=== PATIENT | female | born 1985 | race Caucasian/White ===

== ENCOUNTER 2017-03-12 18:00 | Inpatient (IN) | payer OTHER ==
--- NOTE | ~2017-03-12 | HP ---
Unit #: [id number] #: [id number] Patient: LM FONTAINE [id number] [place] [address] [id number] I MR#: [id number] NAME: LM FONTAINE ROOM: 12 Age: 31 Sex: F Admission Date: 03/12/2017 : 1985 Attending Physician: Aguila Aldnaa M.D. Admitting Physician: Aguila Aldana M.D. HISTORY AND PHYSICAL HISTORY OF PRESENT ILLNESS Trish is a 31 year old admitted to [address] [place] [address] with psychotic behavior. He is a poor historian so her history is taken from her chart. PAST MEDICAL HISTORY 1. Morbid obesity 2. Osteoarthritis 3. History of migraine headaches 4. Obstructive sleep apnea PAST SURGICAL HISTORY Tubal ligation ALLERGIES Latex (rash) SOCIAL HISTORY Smokes at least a pack and a half a day. Denies alcohol. Admits to using marijuana frequently. FAMILY HISTORY Medically noncontributory. REVIEW OF SYSTEMS She does not answer questions appropriately. There are no reports of nausea, vomiting or diarrhea. She has had no complaints of indications of chest pain. CURRENT MEDICATIONS 1. Trilafon 4 mg b.i.d. 2. Trileptal 600 mg b.i.d. 3. Milk of Magnesia p.r.n. 4. Maalox p.r.n. 5. Tylenol p.r.n. 6. Remeron 30 mg q.h.s. 7. BuSpar 15 mg t.i.d. 8. Nicotine patch 14 mg q day PHYSICAL EXAMINATION GENERAL: Alert, well-nourished, in no apparent distress. VITAL SIGNS: Blood pressure 128/64, heart rate 80, respirations 16, temperature 98.6. Unit #: [id number] #: [id number] Patient: LM FONTAINE WEIGHT: 242 pounds. HEIGHT: 5'4". SKIN: Warm and dry without rash or lesion. HEENT: Normocephalic. TMs not viewed. Oral and nasal passages clear. Conjunctivae clear. Pupils equal, round and reactive to light and accommodation. Extraocular movements intact. NECK: Supple without lymphadenopathy or thyromegaly. HEART: Regular rate and rhythm without murmur. LUNGS: Clear. ABDOMEN: Soft, nontender. : Not done. EXTREMITIES: No evidence of cyanosis, clubbing or edema. Moves all extremities without focal deficit. NEUROLOGICAL: Unable to completed extended exam. She does move all extremities without focal deficit. Hand soup person is equal and gait is normal. IMPRESSION Psychiatric admission RECOMMENDATIONS PSYCHIATRIC: Per psychiatrist. MEDICAL: I see no contraindications to participating in facility's activities. MEDICAL PROGNOSIS Good. MEDICAL CONDITION Stable. Dictated by... Mervat Nagy P.A.-C. for Elli Pelletier/prudence TD: 03/14/2017 03:34 JOB #: [id number] HISTORY AND PHYSICAL Page 1 of 1 X Mervat Nagy X HISTORY AND PHYSICAL
--- NOTE | ~2017-03-12 | PN ---
Unit #: [id number] #: [id number] Patient: LM FONTAINE [id number] [facility] [address] [place] [address] [id number] Scott MR#: [id number] NAME: LM FONTAINE ROOM: 12 Age: 31 Sex: F Admission Date: 03/12/2017 : 1985 Attending Physician: Aguila Aldana M.D. Admitting Physician: Elli Billings PROGRESS NOTES DATE 03/14/2017 DISCUSSION The patient remains irritable and continues to complain of poor sleep. She request an increase in her Remeron dose. I will increase her dose to 45 mg, but I have some concerns about the possibility that this medication could potentially worsen the patient's symptoms of missael and may consider its discontinuation and instead begin a trial of Neurontin for sleep. Dictated by... Aguila Aldana M.D. CB/bzg TD: 03/14/2017 14:18 JOB #: [id number] [facility] PROGRESS NOTES Page 1 of 1 X Aguila Aldana MD X PROGRESS NOTE
--- NOTE | ~2017-03-12 | DS ---
Unit #: [id number] #: [id number] Patient: LM FONTAINE [id number] [place] [address] [id number] I MR#: [id number] NAME: LM FONTAINE ROOM: 12 Age: 31 Sex: F Admission Date: 03/12/2017 : 1985 Discharge Date: Attending Physician: Aguila Aldana M.D. DISCHARGE SUMMARY DATE OF DISCHARGE 03/16/2017. REASON FOR ADMISSION The patient is a 31-year-old white female, admitted in a manic phase of bipolar disorder. HOSPITAL COURSE The patient was admitted to the [address] [place] [address] and placed on suicide precautions. She was continued on previously prescribed BuSpar and Trileptal, and was started on Trileptal and Trilafon. She tolerated these medications well, but continued to complain of poor sleep. By 03/15/2017, the patient requesting discharge from the hospital claiming that she was "not getting the help she needed here." She at that time, however, denied any psychotic symptoms and arrangements were made for transport to take the patient back to [place], [place] the following day. FINAL DIAGNOSES Bipolar disorder, most recent episode, manic; borderline personality by history; morbid obesity; obstructive sleep apnea. DISPOSITION ON DISCHARGE The patient is discharged on the following medications: BuSpar 15 mg t.i.d. for anxiety, Trileptal 600 mg b.i.d. for mood stabilization, Trilafon 4 mg b.i.d. for mood stabilization, and Remeron 45 mg at h.s. for depression. DISCHARGE INSTRUCTIONS No dietary or physical restrictions were placed upon the patient at the time of discharge. PROGNOSIS Her prognosis is considered fair. FOLLOWUP Followup will take place through the auspices of community mental health resources in the [place], [place] area. Dictated by... Aguila Aldana M.D. CB/xi Unit #: [id number] #: [id number] Patient: LM FONTAINE TD: 03/15/2017 14:11 JOB #: [id number] DISCHARGE SUMMARY Page 1 of 1 X Aguila Aldana MD DISCHARGE SUMMARY
--- NOTE | ~2017-03-12 | PA ---
Unit #: [id number] #: [id number] Patient: LM FONTAINE [id number] [place] [address] [id number] I MR#: [id number] NAME: LM FONTAINE ROOM: P112 Age: 31 Sex: F Admission Date: 03/12/2017 : 1985 Date of Assessment: 03/13/2017 Attending Physician: Aguila Aldana M.D. Admitting Physician: Aguila Aldana M.D. PSYCHIATRIC ASSESSMENT IDENTIFYING INFORMATION The patient is a 31-year-old white female from [facility] admitted after she had presented to this facility wishing to reinitiate treatment for her bipolar spectrum disorder. CHIEF COMPLAINT I can't find a psychiatrist in the [facility] area to prescribe medicine for me. INFORMANT The patient, reliability is fair. HISTORY OF PRESENT ILLNESS The patient is a 31-year-old female last hospitalized at facility under the care of this physician in 2010. At that time the patient was diagnosed with mood disorder unspecified and borderline personality disorder. The patient now reports poor sleep and is exhibiting pressured speech consistent with a probable bipolar spectrum disorder. Additionally the patient reports a history of positive response to Trileptal 600 mg twice daily the reinitiation to which she request. The patient also reports a history of poor response to second degeneration antipsychotics but reports that as a child she did well on Mellaril and Tegretol. The patient is currently reporting positive command hallucinations and is fearful that she will "act to harm someone. She has not slept in several days. The patient reports no abuse of any psychoactive substances. She lives with her who she describes as supportive. She reports no recent weight loss or loss of appetite. PAST PSYCHIATRIC HISTORY As above. The patient is not presently under the care of a psychiatrist. PAST MEDICAL Significant for a history of hypercholesterolemia, fatty liver, polycystic ovarian syndrome, rheumatoid arthritis, prolapse uterus, bursitis, spinal stenosis, chronic bronchitis, obstructive sleep apnea and asthma. MEDICATIONS At the time of admission the patient reported medications were BuSpar and Remeron. ALLERGIES Latex (2:02) Unit #: [id number] #: [id number] Patient: LM FONTAINE. FAMILY HISTORY Noncontributory. SOCIAL HISTORY The patient lives with her . She does not work outside the home. There is no report of alcohol, tobacco or street drugs. MENTAL STATUS EXAMINATION At this time reveals the patient to be an obese white female appearing her stated age. She is in no apparent physical distress at the time of examination. She is awake, alert, and oriented in all spheres. Her mood is mildly dysphoric. Her affect constricted. Speech is generally relevant and coherent. There are no gross deficits in memory or cognition noted. Intelligence is judged to be in the average range based on fund of knowledge. The patient is cooperative throughout the interview. He is currently endorsing homicidal ideation as well as vague suicidal ideation. She reports positive auditory hallucinations of (2:31). Her judgement and insight appear to be significantly impaired. Giving the patient's history of positive response to Trileptal this medication won't be started and a dose of 600 mg twice daily. Additionally given the patient's reported intolerance of psychiatric of antipsychotic and a history of positive response to Mellaril. I will begin a trial of Trilafon 4 mg three times daily in hopes of augmenting the mood stabilizing properties of Trileptal. The patient will participate in appropriate singer and milieu activities with an estimate link of stay in the hospital of 5 to 7 days. Dictated by... Aguila Aldana M.D. LIAM/prudence TD: 03/14/2017 02:20 JOB #: [id number] PSYCHIATRIC ASSESSMENT Page 1 of 1 X Aguila Aldana MD X PSYCHIATRIC ASSESSMENT
[2017-03-13 09:38] LABS: BASOPHIL# 0.1 X10e3 (0-0.3); BASOPHIL% 0.6 % (0-2.5); EOSINOPHIL# 0.2 X10e3 (0-0.7); EOSINOPHIL% 1.6 % (0.0-7.0); HEMATOCRIT 37.6 % (35.0-45.0); HEMOGLOBIN 11.9 gm/dL (12.0-16.0); LYMPHOCYTE# 3.7 X10e3 (1.0-3.5); LYMPHOCYTE% 30.8 % (17.0-45.0); MEAN CELL VOLUME 80.1 FL (83-96); MEAN CORPUSCULAR HEMOGLOBIN 25.3 PG (28-34); MEAN CORPUSCULAR HGB CONC 31.6 g/dL (30-36); MEAN PLATELET VOLUME 8.1 FL (6.5-11.5); MONOCYTE# 1.1 X10e3 (0-1.0); MONOCYTE% 8.7 % (3.0-12.0); NEUTROPHIL# 7.1 X10e3 (1.5-7.1); NEUTROPHIL% 58.3 % (40-75); PLATELET COUNT 320 X10e3 (140-420); RED BLOOD COUNT 4.69 X10e (3.90-5.30); RED CELL DISTRIBUTION WIDTH 15.5 % (11.0-15.5); WHITE BLOOD COUNT 12.1 X10e3 (4.0-10.5)
[2017-03-13 09:46] LABS: DIFF IND NO
[2017-03-13 10:28] LABS: ALBUMIN SERUM 3.1 g/dL (3.5-5.0); BILIRUBIN,TOTAL 0.5 mg/dL (0.2-2.0); BUN/CREATININE RATIO 11.66; CALCIUM SERUM 8.7 mg/dL (8.4-10.2); CREATININE SERUM 0.6 mg/dL (0.6-1.4); GLOM FILT RATE Estimated 120.6 mL/min (>60); POTASSIUM 3.8 mmol/L (3.5-5.1); PROTEIN TOTAL SERUM 5.7 g/dL (6.0-8.3)
== END 2017-03-16 13:42 | disposition home or self-care (01) | DRG 885 ==
LOC: P1S 19:27
PROVIDERS: Specialist
DX: F31.9 Bipolar disorder, unspecified (principal); R45.851 Suicidal ideations; Z68.41 Body mass index [BMI] 40.0-44.9, adult; F60.3 Borderline personality disorder; G47.33 Obstructive sleep apnea (adult) (pediatric); R45.850 Homicidal ideations; E66.01 Morbid (severe) obesity due to excess calories; Z91.040 Latex allergy status; Z98.51 Tubal ligation status; F17.210 Nicotine dependence, cigarettes, uncomplicated
CPT/HCPCS: 80053; 84703; 85025